=== PATIENT | male | born 1975 | race Caucasian/White ===

== ENCOUNTER 2019-05-01 19:27 | Emergency (ER) | payer OTHER ==
[~2019-05-01] VITALS: Ht 193 cm; Wt 88.6 kg
[2019-05-01 21:05] VITALS: BP 159/98
== END 2019-05-01 21:07 ==
LOC: ER 19:28
DX: Z02.89 Encounter for other administrative examinations (principal); F17.200 Nicotine dependence, unspecified, uncomplicated
CPT/HCPCS: 99283